=== PATIENT | female | born 1955 | race Caucasian/White ===

== ENCOUNTER 2023-04-25 08:17 | Day surgery (SDC) | payer OTHER ==
[2023-04-17 15:30] VITALS: BMI 23.8
[2023-04-25] MEDS ORDERED: BSS (NA/CA/MG/K) BALANCED SALT SOLUTION OPHTH SOLN 15 ML BOTTLE ONE (08:22)
[2023-04-25] MEDS ORDERED: TETRACAINE 0.5% OPHTH SOLN 2 ML BOTTLE ONE (08:22)
[2023-04-25] MEDS ORDERED: LIDOCAINE 1% P/F 10 MG/ML VIAL ONE (08:22)
[2023-04-25] MEDS ORDERED: CARBACHOL 0.01% INTRA-OCULAR 1.5 ML VIAL ONE (08:23)
[2023-04-25] MEDS ORDERED: NEO/POLYMYX B SULF/DEXAMETH OPHTHALMIC 5ML BOTTLE ONE (08:23)
[2023-04-25] MEDS: PHENYLEPHRINE 2.5% OPTHALMIC DROP 2ML BOTTLE ONE (08:50)
[2023-04-25] MEDS: CYCLOPENTOLATE 2% OPHTH SOLN 2 ML BOTTLE ONE (08:50)
[2023-04-25] MEDS: TROPICAMIDE 1% OPHTH SOLN 15 ML BOTTLE ONE (08:50)
[2023-04-25] MEDS: CIPROFLOXACIN 0.3% EYE DROPS 5 ML BOTTLE ONE (08:50)
[2023-04-25] MEDS ORDERED: MIDAZOLAM HCL 2 MG/2 ML SINGLE DOSE VIAL ONE (09:43)
[2023-04-25 10:38] VITALS: RESP 18; TEMP 97.5
[2023-04-25 10:40] VITALS: BP 128/70; PULSE 65
== END 2023-04-25 12:05 | disposition home or self-care (01) ==
LOC: FASU 08:17
PROVIDERS: ATTEND Ophthalmology
PROC: 08RJ3JZ Replacement of Right Lens with Synthetic Substitute, Percutaneous Approach (ICD-10-PCS; principal; 2023-04-25 10:00)
DX: H26.8 Other specified cataract (principal)
CPT/HCPCS: 66984; V2632

== ENCOUNTER 2023-05-23 10:20 | Day surgery (SDC) | payer OTHER ==
[2023-05-18 10:09] VITALS: BMI 23.8
[2023-05-23] MEDS ORDERED: LIDOCAINE 1% P/F 10 MG/ML VIAL ONE (10:24)
[2023-05-23] MEDS ORDERED: NEO/POLYMYX B SULF/DEXAMETH OPHTHALMIC 5ML BOTTLE ONE (10:24)
[2023-05-23] MEDS ORDERED: CARBACHOL 0.01% INTRA-OCULAR 1.5 ML VIAL ONE (10:24)
[2023-05-23] MEDS ORDERED: BSS (NA/CA/MG/K) BALANCED SALT SOLUTION OPHTH SOLN 15 ML BOTTLE ONE (10:24)
[2023-05-23] MEDS ORDERED: TETRACAINE 0.5% OPHTH SOLN 2 ML BOTTLE ONE (10:24)
[2023-05-23] MEDS: TROPICAMIDE 1% OPHTH SOLN 15 ML BOTTLE OS ONE ×3 (10:50→11:00)
[2023-05-23] MEDS: CIPROFLOXACIN 0.3% EYE DROPS 5 ML BOTTLE OS ONE ×3 (10:50→11:00)
[2023-05-23] MEDS: CYCLOPENTOLATE 2% OPHTH SOLN 2 ML BOTTLE OS ONE ×3 (10:50→11:00)
[2023-05-23] MEDS: PHENYLEPHRINE 2.5% OPHTH SOLN 15 ML BOTTLE OS ONE ×3 (10:50→11:00)
[2023-05-23] MEDS ORDERED: MIDAZOLAM HCL 2 MG/2 ML SINGLE DOSE VIAL ONE ×2 (12:11→12:41)
[2023-05-23 13:14] VITALS: PULSE 76; RESP 18; TEMP 97.4
[2023-05-23 14:26] VITALS: BP 132/77
== END 2023-05-23 14:20 | disposition home or self-care (01) ==
LOC: FASU 10:20
PROVIDERS: ATTEND Ophthalmology
PROC: 08RK3JZ Replacement of Left Lens with Synthetic Substitute, Percutaneous Approach (ICD-10-PCS; principal; 2023-05-23 12:41)
DX: H26.8 Other specified cataract (principal)
CPT/HCPCS: 66984; V2632